=== PATIENT | female | born 1965 | race Caucasian/White ===

== ENCOUNTER 2020-12-23 11:43 | Day surgery (SDC) | payer MEDICAID ==
[~2020-12-23 11:43] MED LIST: Lactated Ringers 1,000 ML IV SCH; Lidocaine 1%/Sod Bicarbonate in NS 8.4% 1 ML Syringe IDERM PRN; Propofol 200 MG/20 ML SDV ONE; Sodium Chloride 0.9% 10 ML Syringe FLUSH PRN
--- NOTE | 2020-12-23 11:55 | PCM.PREANE ---
Preanesthetic Assessment - Anesthesia/Transfusion/Family Hx Anesthesia History: Prior Anesthesia Without Reaction Family History of Anesthesia Reaction: No Transfusion History: No Prior Transfusion(s) - Review of Systems General: No Symptoms Pulmonary: No Symptoms Cardiovascular: No Symptoms Gastrointestinal: No Symptoms, Other (rare heartburn, takes prilosec as needed.) Neurological: Headache (currently has a headache, will give meds for headache) Other: Reports: None - Physical Assessment NPO Status Date: 12/23/20 NPO Status Time: 05:00 ASA Class: 1 Mental Status: Alert & Oriented x3 Airway Class: Mallampati = 2 Dentition: Reports: Normal Dentition Thyro-Mental Finger Breadths: 3 Mouth Opening Finger Breadths: 3 ROM/Head Extension: Full Lungs: Clear to Auscultation, Normal Respiratory Effort Cardiovascular: Regular Rate, Regular Rhythm - Allergies Allergies/Adverse Reactions: Allergies Allergy/AdvReac Type Severity Reaction Status Date / Time No Known Allergies Allergy Verified 12/21/20 09:51 - Blood Blood Available: No Product(s) Available: None - Anesthesia Plan Pre-Op Medication Ordered: None - Acknowledgements Anesthesia Type Planned: MAC Pt an Appropriate Candidate for the Planned Anesthesia: Yes Alternatives and Risks of Anesthesia Discussed w Pt/Guardian: Yes Pt/Guardian Understands and Agrees with Anesthesia Plan: Yes PreAnesthesia Questionnaire - Past Health History Medical/Surgical History: Denies Medical/Surgical History - Past Surgical History Head Surgeries/Procedures: Reports: None Female Surgical History: Reports: Hysterectomy Musculoskeletal Surgical History: Reports: Other (See Below) Other Musculoskeletal Surgeries/Procedures:: foot surgery - SUBSTANCE USE Tobacco Use Status *Q: Former Tobacco User Recreational Drug Use History: No - HOME MEDS Home Medications: Home Meds . [No Known Home Meds] 12/21/20 [History] - CURRENT (IN HOUSE) MEDS Current Meds: Current Medications Lactated Ringer's (Ringers, Lactated) 1,000 mls @ 125 mls/hr IV ASDIRECTED GILBERT Stop: 12/23/20 23:00 Lidocaine/Sodium Bicarbonate (Lidocaine 1%/Sod Bicarbonate In Ns 8.4% 1 Ml Syringe) 0.25 ml IDERM ONETIME PRN PRN Reason: Prior to IV Start Stop: 12/23/20 18:00 Sodium Chloride (Sodium Chloride 0.9% 10 Ml Syringe) 10 ml FLUSH ASDIRECTED PRN PRN Reason: Keep Vein Open Stop: 12/23/20 18:00 Discontinued Medications Propofol (Propofol 200 Mg/20 Ml Sdv) Confirm Administered Dose 400 mg .ROUTE .K-MED ONE Stop: 12/23/20 11:26
[2020-12-23] MEDS ORDERED: Midazolam 1 MG/ML 2 ML SDV ONE (11:57)
[2020-12-23] MEDS ORDERED: fentaNYL 100 MCG/2 ML SDV ONE (11:57)
[2020-12-23] MEDS ORDERED: Ondansetron 4 MG/2 ML SDV ONE (11:57)
[2020-12-23] MEDS ORDERED: Ketorolac 15 MG/ML SDV ONE (12:20)
--- NOTE | 2020-12-23 12:45 | PCM48HPAN ---
Post Anesthesia Note - EVALUATION WITHIN 48HRS OF ANESTHETIC Vital Signs in Normal Range: Yes Patient Participated in Evaluation: Yes Respiratory Function Stable: Yes Airway Patent: Yes Cardiovascular Function Stable: Yes Hydration Status Stable: Yes Pain Control Satisfactory: Yes Nausea and Vomiting Control Satisfactory: Yes Mental Status Recovered: Yes
--- NOTE | 2020-12-23 17:37 | PCM.PRNOTE ---
- Free Text/Narrative Note: Date: 12/23/2020 Operation: screening colonoscopy Indication: pre-op clearance for donor nephrectomy History: normal screening colonoscopy 5 years ago in average risk patient Endoscopist: Keon Graf MD Findings: grade I internal hemorrhoids with small anterior external hemorrhoidal skin tag. Detailed Report: The patient was taken to the endoscopy suite and placed in left lateral decubitus position. Time out was performed and monitored anesthesia care initiated. A small external hemorrhoid was noted anteriorly, and there appeared to be vitiligo or some other similar skin depigmentation of the anoderm and labia. Digital exam was unremarkable and I could not manually induce prolapse of hemorrhoids or rectal mucosa. The colonoscope was inserted and advanced to the cecum with ease. The appendiceal orifice was visualized. The prep was excellent. The scope was slowly withdrawn and mucosal surfaces carefully inspected. No polyps were identified. On retroflexion in the rectum, grade I internal hemorrhoids were noted with hypertrophied anal papillae. Air was suctioned prior to withdrawal of the scope. The patient tolerated the procedure well.
== END 2020-12-23 13:50 | disposition home or self-care (01) ==
LOC: JD.SDS 11:43
PROVIDERS: ATTEND Surgery
DX: Z12.11 Encounter for screening for malignant neoplasm of colon (principal); K64.0 First degree hemorrhoids; K64.4 Residual hemorrhoidal skin tags; Z98.890 Other specified postprocedural states; Z87.891 Personal history of nicotine dependence
CPT/HCPCS: 45378; J1885; J2250; J2405; J2704; J3010; J7120; 00812